=== PATIENT | male | born 1975 | race Caucasian/White ===

== ENCOUNTER 2020-02-16 11:30 | Emergency (ER) | payer OTHER, SELFPAY ==
[2020-02-16 11:30] VITALS: BP 133/71; PULSE 88; RESP 16; TEMP 37.2; O2SAT 98
--- NOTE | 2020-02-16 11:34 | ED.GENADULT ---
HPI - General Adult General Chief complaint: Upper Respiratory Infection Stated complaint: exposed to covid Time Seen by Provider: 02/16/20 11:34 Source: patient Mode of arrival: ambulatory Limitations: no limitations History of Present Illness HPI narrative: 44-year-old male patient presents to the [facility] with complaints of a possible COVID-19 exposure. Patient states he golfed with 1 of his buddies about 7 days ago and found out about 3 days ago that his fianc?e that lives with him tested positive for COVID. Patient denies any symptoms. Denies any chest pain, shortness of breath, fevers. Denies any altered taste. Patient states he just wanted to be tested since he possibly could expose others. Related Data Home Medications Medication Instructions Recorded Confirmed Flonase Allergy Relief 02/16/20 albuterol sulfate 02/16/20 Allergies Allergy/AdvReac Type Severity Reaction Status Date / Time theophylline Allergy Rash Verified 02/16/20 11:41 THEOPHYLLINE ANHYDROUS Allergy Rash Uncoded 02/16/20 11:41 Review of Systems Review of Systems: Narrative: CONSTITUTIONAL: Denies fever, chills, or sweats. EYES: Denies visual changes, redness, or discharge. ENT: Denies rhinorrhea, congestion, sore throat, or otalgia. CARDIOVASCULAR: Denies chest pain, palpitations, or edema. RESPIRATORY: Denies cough or dyspnea. GASTROINTESTINAL: Denies abdominal pain, nausea, vomiting, or diarrhea. GENITOURINARY: Denies dysuria or hematuria. SKIN: Denies rash or itching. MUSCULOSKELETAL: Denies back pain, joint pain, or myalgia. NEUROLOGIC: Denies headache, numbness, or weakness. PSYCHIATRIC: Denies anxiety or depression. PMFSH Comments At the time of my signature I agree with nursing past medical history, surgical, social, and family history. There is no relevant family history pertinent to the presenting complaint. Exam Narrative: Exam Narrative: GENERAL: Well-appearing, well-nourished, and in no acute distress. HEAD: Normocephalic, atraumatic. EYES: PERRLA and EOMI. ENT: Nares clear, no rhinorrhea or epistaxis. Mucous membranes moist. NECK: Supple. No lymphadenopathy CHEST: Clear to auscultation. No respiratory distress. HEART: Regular rate and rhythm. No murmur heard. Normal peripheral pulses. ABDOMEN: Soft, nontender, nondistended, normal active bowel sounds. EXTREMITIES: Normal range of motion. No edema. SKIN: Warm, dry, no rash. NEURO: No focal deficits. Alert and oriented x3. Course Vital Signs Vital signs: Vital signs reviewed. Medical Decision Making Differential Diagnosis Differential Diagnosis: Differential diagnosis: Allergic rhinitis, chronic sinusitis, tonsillitis, acute sinusitis, infectious mononucleosis, seasonal influenza, pertussis, diphtheria, meningococcal disease, viral syndrome, viral bronchitis, RSV, and COVID-19 Discussed with patient that we will send over an order to [facility] and they will call him in the next day or 2 to schedule the testing appointment. Discussed with him that meantime he needs to stay isolated away from family and friends and do not go out to the public. Discussed with him I will write him off work until further notice until we receive the, testing results. Patient verbalized understanding of this denies any other questions or concerns at this time. Critical Care Time Critical Care Time Critical Care Time: No Discharge Plan Discharge Clinical Impression: Close exposure to COVID-19 virus Patient Disposition: Home, Self-Care Condition: Stable Instructions: Antibiotic Form, COVID-19 (Coronavirus Disease 2019) (ED) Additional Instructions: Continue to isolate and try not go out public and stay away from family and friends at this time until you receive test results. May take Tylenol ibuprofen as needed for any pain spot, body aches or chills. If you develop chest pain, shortness of breath or any other concerning symptoms please return or to the emergency dep
== END 2020-02-16 11:52 | disposition home or self-care (01) ==
PROVIDERS: Emergency Provider Nurse Practitioner Family; PCP Family Medicine
DX: Z20.828 Contact with and (suspected) exposure to other viral communicable diseases (principal); J45.909 Unspecified asthma, uncomplicated
CPT/HCPCS: 99201; G0463

== ENCOUNTER 2023-10-25 16:19 | Emergency (ER) | payer OTHER, SELFPAY ==
[2023-10-25 16:44] VITALS: BP 110/67; PULSE 103; RESP 20; TEMP 37.4; O2SAT 98
--- NOTE | 2023-10-25 17:35 | ED.URI ---
HPI - URI/Sore Throat General Chief Complaint: Upper Respiratory Infection Stated Complaint: flu symptoms Time Seen by Provider: 10/25/23 17:36 Source: patient and RN notes reviewed Mode of arrival: ambulatory Limitations: no limitations History of Present Illness HPI Narrative: 48 y/o male presented for c/o nasal congestion, cough, body aches and subjective fever x1 week. Took advil which helps. States symptoms were worse yesterday. Denies shortness of breath, wheezing, nausea, vomiting, diarrhea or lethargy. Smokes about 2 cigarettes a day. MD elicited complaint: cough Related Data Home Medications Medication Instructions Recorded Confirmed fluticasone propionate 50 2 spray intranasal DAILY 10/25/23 10/25/23 mcg/actuation nasal spray,suspension Allergies Allergy/AdvReac Type Severity Reaction Status Date / Time theophylline Allergy Rash Verified 10/25/23 16:57 Review of Systems Review of Systems: CONSTITUTIONAL: Endorses malaise, chills, sweats, fever EYES: Denies visual changes, redness, or discharge ENT: Reports rhinorrhea, congestion, denies sinus pain, otalgia, sore throat CARDIOVASCULAR: Denies chest pain, palpitations, edema RESPIRATORY: Reports cough, post nasal drainage. Denies dyspnea GASTROINTESTINAL: Denies abdominal pain, nausea, vomiting, diarrhea SKIN: Denies rash or itching MUSCULOSKELETAL: Endorses myalgia [facility] Social History Social History (Updated 10/25/23 @ 18:09 by Justine Christopher, BEHAVIOR INTERVENTIONIST) Smoking status: Current every day smoker Tobacco type: cigarettes and e-cigarettes/vaping Additional smoking assessment comments: smokes 2cig/day and vapes Gender identity (if verbalized by the patient): Male Exam Narrative: GENERAL: well-appearing, nontoxic no acute distress. EYES: PERRLA, conjunctivae clear ENT: Mucous membranes moist. TMs pearly jett with dull light reflex bilaterally; no tragal tenderness. Oropharynx erythematous without lesions or exudate, no drooling, no hoarseness, no trismus, uvula midline. NECK: Supple. No lymphadenopathy CHEST: Clear to auscultation, breath sounds equal. No wheezing, rhonchi, rales, or stridor. No respiratory distress, speaks in full sentences. HEART: Regular rate and rhythm. No murmur heard. SKIN: Warm, dry, no rash. NEURO: Alert and oriented x3. PSYCH: Normal mood and affect Course Course Emergency Course: Patient is aware of diagnosis, understands and agrees to treatment plan. Anticipatory guidance given. Patient agrees to follow-up as directed and is aware of reasons to seek care at the emergency department. Portions of this record may have been created with voice recognition software Level of Care: Express Care Visit Vital Signs Vital signs: Vital Signs Temperature 99.4 F 10/25/23 16:44 Pulse Rate 103 H 10/25/23 16:44 Respiratory Rate 20 10/25/23 16:44 Blood Pressure 110/67 10/25/23 16:44 Pulse Oximetry 98 10/25/23 16:44 Oxygen Delivery Room Air 10/25/23 16:44 Temperature 99.4 F 10/25/23 16:44 Pulse Rate 103 H 10/25/23 16:44 Respiratory Rate 20 10/25/23 16:44 Blood Pressure 110/67 10/25/23 16:44 Pulse Oximetry 98 10/25/23 16:44 Oxygen Delivery Room Air 10/25/23 16:44 reviewed MDM - URI/Sore Throat MDM Narrative Medical decision making narrative: Positive influenza. Results reviewed with patient. Discussed physical exam findings. Advised supportive measures and signs/symptoms to go to the ER. Pt is appropriate for outpt treatment and f/u. Differential Diagnosis Differential diagnosis: Likely upper respiratory infection, sinusitis and viral infection Lab Data Labs: Lab Results 10/25/23 Range/Units 16:50 POC SARS CoV-2 Ag Negative (Negative) Influenza A Screen Negative Reference Range: Negative Influenza B Screen Positive Refer
== END 2023-10-25 17:45 | disposition home or self-care (01) ==
PROVIDERS: Emergency Provider Nurse Practitioner Family; PCP Family Medicine
DX: J10.1 Influenza due to other identified influenza virus with other respiratory manifestations (principal); Z20.822 Contact with and (suspected) exposure to COVID-19; F17.210 Nicotine dependence, cigarettes, uncomplicated; F17.290 Nicotine dependence, other tobacco product, uncomplicated
CPT/HCPCS: 87426; 87804; 99213; G0463